=== PATIENT | female | born 1955 | race Hispanic/Latino ===

== ENCOUNTER → 2020-02-10 | Outpatient (CLI) | payer BC | END | disposition home or self-care (01) | LOC: SHCH 13:27 | PROVIDERS: ATTEND Internal Medicine Cardiovascular Disease | DX: I10 Essential (primary) hypertension (principal) | CPT/HCPCS: 93306; 93356 ==

== ENCOUNTER 2020-04-04 09:18 | Day surgery (SDC) | payer BC ==
[2020-04-02 13:36] LABS: BASOPHILS % (AUTO) 0.5 % (0.0-5.0); EOSINOPHILS % (AUTO) 2.5 % (0.0-8.0); HEMATOCRIT 37.4 % (36-48); LYMPHOCYTES % (AUTO) 28.7 % (21.0-51.0); MEAN CORPUSCULAR HEMOGLOBIN 29.1 pg (27.0-33.0); MEAN CORPUSCULAR HGB CONC 32.1 g/dL (32.0-36.0); MEAN CORPUSCULAR VOLUME 90.8 fL (79-99); MONOCYTES % (AUTO) 8.3 % (3.0-13.0); NEUTROPHILS % (AUTO) 59.6 % (40.0-77.0); PLATELET COUNT (AUTO) 219 K/uL (130-400); RED BLOOD CELL COUNT(AUTO) 4.12 MIL/uL (4.00-5.50); RED CELL DISTRIBUTION WIDTH 13.8 % (11.0-15.5); WHITE BLOOD COUNT (AUTO) 7.5 K/uL (4.8-10.8)
[2020-04-02 13:40] LABS: APPEARANCE,URINE CLEAR (CLEAR); BILIRUBIN,URINE NEGATIVE (NEGATIVE); COLOR,URINE YELLOW (YELLOW); GLUCOSE, URINE (UA) NEGATIVE (NEGATIVE); KETONES,URINE NEGATIVE (NEGATIVE); LEUKOCYTE ESTERASE ,URINE MODERATE (NEGATIVE); NITRATE,URINE NEGATIVE (NEGATIVE); OCCULT BLOOD,URINE TRACE-INTACT (NEGATIVE); PH,URINE 5.5 (5.0-8.0); PROTEIN,URINE NEGATIVE (NEGATIVE)
[2020-04-02 13:46] LABS: INR 0.92 (0.85-1.15); PARTIAL THROMBOPLASTIN TIME 25.3 SEC (26.3-35.5)
[2020-04-02 13:47] LABS: CREATININE 0.9 mg/dL (0.5-1.5); POTASSIUM 3.7 mmol/L (3.5-5.1)
[2020-04-02 13:59] LABS: BACTERIA,URINE Moderate /HPF (None Seen); RBC,URINE 0-1 /HPF (0-1); SQUAMOUS EPITHELIAL CELL,UR Many /HPF (0-2)
--- NOTE | 2020-04-03 10:15 | NUR ---
LABS ABNORMAL LABS INCLUDING URINALYSIS AND URINE CULTURE FAXED TO [facility] FOR REVIEW.
[2020-04-03 13:57] VITALS: BP 146/69
--- NOTE | 2020-04-03 16:24 | NUR ---
[facility] HALL ON PHONE. PROCEED WITH PLANNED PROCEDURE. NO OTHER ORDERS RECEIVED.
[2020-04-04] VITALS (9 sets, daily range): BP systolic 126–149; BP diastolic 48–66
[~2020-04-04] VITALS: Ht 165.1 cm; Wt 103.9 kg
[~2020-04-04 09:18] MED LIST: ASPI-1197 PO; ATOR40TA71 PO; CARV12.511 PO; HYDR12.54 PO; LORA-192 PO; LOSA50TA64 PO; MONT10TA21 PO; PAROXETINE PO; PREG100C PO; VITAMIN D PO
[2020-04-04] MEDS ORDERED: BIVALIRUDIN 250 MG/VIAL IV ONE (13:29)
[2020-04-04] MEDS ORDERED: NITROGLYCERIN 2 MG/VIAL VIAL IV ONE (13:29)
[2020-04-04] MEDS ORDERED: LIDOCAINE HCL 2% 20ML ONE (13:29)
[2020-04-04] MEDS ORDERED: IOHEXOL-350 75 ML VIAL IV ONE ×2 (13:29→14:06)
[2020-04-04] MEDS ORDERED: HEPARIN SODIUM 1000UNIT/ML 10ML VIAL ONE (13:29)
[2020-04-04] MEDS ORDERED: IOHEXOL 350 MG/ML 100ML INFUS..BTL IV ONE (13:29)
[2020-04-04] MEDS ORDERED: SODIUM BICARB 50MEQ 50ML VIAL 50 ML ONE (13:29)
--- NOTE | 2020-04-04 16:41 | NUR ---
GAVE REPORT TO [facility]ARE[facility] FALCON NO CONCERNS
== END 2020-04-04 18:21 | disposition home or self-care (01) ==
LOC: DAH 09:18
PROVIDERS: ATTEND Internal Medicine Cardiovascular Disease
DX: I25.810 Atherosclerosis of coronary artery bypass graft(s) without angina pectoris (principal); I95.2 Hypotension due to drugs; I10 Essential (primary) hypertension; R60.9 Edema, unspecified; G62.9 Polyneuropathy, unspecified; E78.00 Pure hypercholesterolemia, unspecified; G47.33 Obstructive sleep apnea (adult) (pediatric); Z95.1 Presence of aortocoronary bypass graft; Z79.01 Long term (current) use of anticoagulants; Z79.82 Long term (current) use of aspirin; Z79.899 Other long term (current) drug therapy
CPT/HCPCS: 36415; 71045; 80048; 81001; 85025; 85610; 85730; 87088; 93005; 93459; A4215; A4216; A4221; A4222; A4223 ×3; A4606; A4663; C1760; C1769; C1894 ×2; J1644; J3490 ×3; Q9965; Q9967 ×2; J0583

== ENCOUNTER → 2020-05-03 | Outpatient (CLI) | payer BC | END | disposition home or self-care (01) | LOC: SHCH 11:19 | PROVIDERS: ATTEND Internal Medicine Cardiovascular Disease | DX: R60.9 Edema, unspecified (principal) | CPT/HCPCS: 93970 ==